=== PATIENT | female | born 1955 | race Caucasian/White ===

== ENCOUNTER 2024-05-21 04:24 | Inpatient (IN) | payer MEDICARE ==
[~2024-05-21] VITALS: Ht 167.6 cm; Wt 122.5 kg
[~2024-05-21 04:24] MED LIST: ELIQUIS5 MG PO
[2024-05-21] MEDS: ONDANSETRON HCL INJ 2MG/ML 2ML 2 MG/ML VIAL IV STA (05:02)
[2024-05-21] MEDS: SODIUM CHLORIDE 0.9% 1000ML 1,000 ML IV STA (05:02)
[2024-05-21] MEDS: Morphine 4mg INJECTION 4 MG/ML INJ IV STA (05:02)
[2024-05-21 05:05] LABS: BASOPHILS # (AUTO) 0.1 (0.0-0.1); BASOPHILS % 0.4 % (0.0-1.0); EOSINOPHILS # (AUTO) 0.2 (0.0-0.4); HEMATOCRIT 47.8 % (34.2-44.1); HEMOGLOBIN 15.3 g/dL (12.0-16.0); LYMPHOCYTES # (AUTO) 4.9 (1.0-3.2); LYMPHOCYTES % 29.2 % (18.0-39.1); MEAN CORPUSCULAR HEMOGLOBIN 29.8 pg (28-32); MEAN CORPUSCULAR VOLUME 93.2 fL (81-99); MONOCYTES # (AUTO) 1.1 (0.2-0.8); MONOCYTES % 6.7 % (4.4-11.3); NEUTROPHILS # (AUTO) 10.4 (2.1-6.9); NEUTROPHILS % 62.2 % (38.7-80.0); PLATELET COUNT 551 x10e3/uL (140-360); RED BLOOD COUNT 5.13 x10e6/uL (3.6-5.1); RED CELL DISTRIBUTION WIDTH 13.8 % (11.7-14.4); WHITE BLOOD COUNT 16.71 x10e3/uL (4.8-10.8)
[2024-05-21 05:12] LABS: CLARITY,URINE CLEAR (CLEAR); COLOR,URINE YELLOW (YELLOW)
[2024-05-21 05:13] LABS: BILIRUBIN,URINE NEGATIVE (NEGATIVE); GLUCOSE, URINE NEGATIVE (NEGATIVE); KETONES,URINE NEGATIVE (NEGATIVE); LEUKOCYTE ESTERASE ,URINE SMALL (NEGATIVE); NITRITE,URINE NEGATIVE (NEGATIVE); PH,URINE 5.5 (5 - 7); PROTEIN,URINE DIPSTICK NEGATIVE (NEGATIVE); URINE UROBILINOGEN 0.2 mg/dL (0.2 - 1)
[2024-05-21 05:20] LABS: BACTERIA,URINE MANY /HPF; WBC,URINE (MAN) 21-50 /HPF (0-5)
[2024-05-21 05:21] LABS: EPITHELIAL CELLS,URINE MODERATE /LPF; RENAL EPITHELIAL CELLS,URINE FEW
[2024-05-21 05:24] LABS: ALANINE AMINOTRANSFERASE 12 IU/L (0-55); ALBUMIN 3.7 g/dL (3.5-5.0); ALBUMIN/GLOBULIN RATIO 0.9 (0.8-2.0); ALKALINE PHOSPHATASE 88 IU/L (40-150); ANION GAP 15.4 mmol/L (8-16); BILIRUBIN,TOTAL 0.7 mg/dL (0.2-1.2); BLOOD UREA NITROGEN 12 mg/dL (7-26); BUN/CREATININE RATIO 16 (6-25); CALCIUM 9.5 mg/dL (8.4-10.2); CARBON DIOXIDE 25 mmol/L (22-29); CHLORIDE 97 mmol/L (98-107); CREATINE KINASE 36 IU/L (29-168); CREATININE, SERUM 0.77 mg/dL (0.57-1.11); EST GLOMERULAR FILTRATION RATE 84 ML/MIN (>=60); GLUCOSE 141 mg/dL (74-118); LIPASE 24 U/L (8-78); SODIUM 134 mmol/L (136-145); TOTAL PROTEIN 7.9 g/dL (6.5-8.1)
[2024-05-21 05:26] LABS: POTASSIUM 3.4 mmol/L (3.5-5.1)
[2024-05-21 05:30] LABS: TROPONIN I < 0.001 ng/mL (0-0.300)
[2024-05-21] MEDS ORDERED: IOPAMIDOL 370 MG/ML 100 ML INFUS..BTL INJ ONE (05:34)
[2024-05-21] MEDS ORDERED: Morphine 4mg INJECTION 4 MG/ML INJ IV PRN (07:30)
[2024-05-21] MEDS ORDERED: ONDANSETRON HCL INJ 2MG/ML 2ML 2 MG/ML VIAL IV PRN (07:30)
[2024-05-21] MEDS ORDERED: MAGNESIUM/ALUMINUM/SIMETHICONE 30 ML UDC PO PRN (12:30)
[2024-05-21] MEDS ORDERED: ACETAMINOPHEN 325 MG TAB PO PRN (12:30)
[2024-05-21] MEDS ORDERED: HYDRALAZINE HCL 20 MG/ML VIAL IV PRN (12:30)
[2024-05-21] MEDS ORDERED: GUAIFENESIN/DEXTROMETHORPHAN LIQD 5 ML UDC PO PRN (12:30)
[2024-05-21] MEDS ORDERED: DOCUSATE SODIUM 100 MG CAP PO PRN (12:30)
[2024-05-21 14:21] LABS: CREATINE KINASE 169 IU/L (29-168)
[2024-05-21 14:28] LABS: TROPONIN I < 0.001 ng/mL (0-0.300)
[2024-05-21] MEDS: SODIUM CHLORIDE 0.9% 1000ML 1,000 ML IV SCH (14:31)
[2024-05-21 14:36] VITALS: TEMP 98
[2024-05-21 15:29] LABS: INR 1.16; PROTHROMBIN TIME 15.4 seconds (11.9-14.5)
[2024-05-21 15:30] VITALS: PULSE 66; RESP 16
[2024-05-21 15:30] LABS: PARTIAL THROMBOPLASTIN TIME 32.1 seconds (23.8-35.5)
[2024-05-21] MEDS: HEPARIN SOD (PORCINE) 5,000 UNIT/ML VIAL SC SCH (15:41)
[2024-05-21 21:43] VITALS: BP 130/53; PULSE 70; RESP 18; TEMP 98; O2SAT 98
[2024-05-21] MEDS: MELATONIN 3 MG TAB PO PRN (22:10)
[2024-05-21 23:00] VITALS: BP 130/53; PULSE 70; RESP 18; TEMP 98; O2SAT 98
[2024-05-22] VITALS (8 sets, daily range): BP systolic 117–144; BP diastolic 50–68; PULSE 70–77; RESP 18–20; TEMP 97.7–98.7; O2SAT 96–100
[2024-05-22] MEDS ORDERED: OS-CAL 500+D T1 EACH PO (05:27)
[2024-05-22] MEDS ORDERED: LEVOTHYROXINE100 MC1 IV (05:29)
[2024-05-22] MEDS ORDERED: PROTONIX20 MG PO (05:31)
[2024-05-22] MEDS ORDERED: LOSARTAN POTAS100 MG PO (05:31)
[2024-05-22] MEDS ORDERED: MULTIA DAILY M1 EACH (05:31)
[2024-05-22] MEDS ORDERED: PANTOPRAZOLE SO40 MG PO (05:31)
[2024-05-22] MEDS ORDERED: SERTRALINE HCL150 MG (05:31)
[2024-05-22 06:10] LABS: BASOPHILS # (AUTO) 0.1 (0.0-0.1); BASOPHILS % 0.7 % (0.0-1.0); EOSINOPHILS # (AUTO) 0.6 (0.0-0.4); EOSINOPHILS % 4.9 % (0.0-6.0); HEMATOCRIT 41.4 % (34.2-44.1); LYMPHOCYTES # (AUTO) 5.2 (1.0-3.2); LYMPHOCYTES % 42.1 % (18.0-39.1); MEAN CORPUSCULAR HGB CONC 31.4 g/dL (31-35); MEAN CORPUSCULAR VOLUME 95.4 fL (81-99); MONOCYTES # (AUTO) 1.2 (0.2-0.8); MONOCYTES % 9.5 % (4.4-11.3); NEUTROPHILS # (AUTO) 5.2 (2.1-6.9); NEUTROPHILS % 42.4 % (38.7-80.0); PLATELET COUNT 496 x10e3/uL (140-360); RED BLOOD COUNT 4.34 x10e6/uL (3.6-5.1); WHITE BLOOD COUNT 12.35 x10e3/uL (4.8-10.8)
[2024-05-22 06:30] LABS: ALBUMIN/GLOBULIN RATIO 0.9 (0.8-2.0); ANION GAP 11.2 mmol/L (8-16); BILIRUBIN,TOTAL 0.6 mg/dL (0.2-1.2); CALCIUM 8.7 mg/dL (8.4-10.2); CREATININE, SERUM 0.68 mg/dL (0.57-1.11); TOTAL PROTEIN 6.4 g/dL (6.5-8.1)
[2024-05-22 06:40] LABS: POTASSIUM 3.2 mmol/L (3.5-5.1)
[2024-05-22] MEDS: DEXTROSE 5%/0.9% SOD CHL 1,000 ML IV SCH (13:28)
[2024-05-22] MEDS: POTASSIUM CHLORIDE 20 MEQ TAB CR PO ONE (13:28)
[2024-05-23] VITALS (7 sets, daily range): BP systolic 100–127; BP diastolic 53–69; PULSE 66–74; RESP 16–20; TEMP 97.7–98.8; O2SAT 95–99
[2024-05-23 07:41] LABS: BASOPHILS # (AUTO) 0.1 (0.0-0.1); BASOPHILS % 0.6 % (0.0-1.0); EOSINOPHILS # (AUTO) 0.5 (0.0-0.4); EOSINOPHILS % 5.1 % (0.0-6.0); HEMOGLOBIN 12.6 g/dL (12.0-16.0); LYMPHOCYTES % 49.1 % (18.0-39.1); MEAN CORPUSCULAR HEMOGLOBIN 29.4 pg (28-32); MEAN CORPUSCULAR HGB CONC 30.7 g/dL (31-35); MEAN CORPUSCULAR VOLUME 95.8 fL (81-99); MONOCYTES # (AUTO) 1.2 (0.2-0.8); MONOCYTES % 11.2 % (4.4-11.3); NEUTROPHILS # (AUTO) 3.5 (2.1-6.9); NEUTROPHILS % 33.7 % (38.7-80.0); PLATELET COUNT 454 x10e3/uL (140-360); RED BLOOD COUNT 4.28 x10e6/uL (3.6-5.1); RED CELL DISTRIBUTION WIDTH 14.2 % (11.7-14.4); WHITE BLOOD COUNT 10.23 x10e3/uL (4.8-10.8)
[2024-05-23 08:05] LABS: ANION GAP 9.2 mmol/L (8-16); CALCIUM 8.6 mg/dL (8.4-10.2); CREATININE, SERUM 0.59 mg/dL (0.57-1.11); POTASSIUM 3.2 mmol/L (3.5-5.1)
[2024-05-23 09:15] LABS: BASOPHILS % (MANUAL) 1 % (0-1.5); EOSINOPHILS % (MANUAL) 2 % (0-7); LYMPHOCYTES % (MANUAL) 40 % (19-48); MONOCYTES % (MANUAL) 6 % (3.4-9.0); NEUTROPHILS % (MANUAL) 48 % (40-74); REACTIVE LYMPHOCYTES 3
[2024-05-23 09:16] LABS: PLATELET ESTIMATE SLIGHTLY INCREASED; PLATELET MORPHOLOGY COMMENT NORMAL; RBC MORPHOLOGY COMMENT NORMAL
[2024-05-23] MEDS: POTASSIUM CHLORIDE 20 MEQ TAB CR PO ONE (15:50)
[2024-05-23] MEDS: APIXABAN 5 MG TABLET PO SCH (17:24)
[2024-05-24] VITALS: BP_SYST 115; BP_SYST 125; BP_DIAS 50; BP_DIAS 64; PULSE 75; PULSE 76; RESP 18; RESP 20; TEMP 98.6; O2SAT 96; O2SAT 99
[2024-05-24 04:00] VITALS: BP 128/69; PULSE 79; RESP 17; TEMP 98.2; O2SAT 95
[2024-05-24 05:46] LABS: BASOPHILS # (AUTO) 0.1 (0.0-0.1); BASOPHILS % 0.6 % (0.0-1.0); EOSINOPHILS # (AUTO) 0.7 (0.0-0.4); EOSINOPHILS % 5.7 % (0.0-6.0); HEMATOCRIT 41.4 % (34.2-44.1); HEMOGLOBIN 12.6 g/dL (12.0-16.0); LYMPHOCYTES # (AUTO) 5.6 (1.0-3.2); LYMPHOCYTES % 45.2 % (18.0-39.1); MEAN CORPUSCULAR HEMOGLOBIN 29.2 pg (28-32); MEAN CORPUSCULAR HGB CONC 30.4 g/dL (31-35); MEAN CORPUSCULAR VOLUME 96.1 fL (81-99); MONOCYTES # (AUTO) 1.5 (0.2-0.8); MONOCYTES % 12.2 % (4.4-11.3); NEUTROPHILS # (AUTO) 4.5 (2.1-6.9); NEUTROPHILS % 35.8 % (38.7-80.0); PLATELET COUNT 464 x10e3/uL (140-360); RED BLOOD COUNT 4.31 x10e6/uL (3.6-5.1); RED CELL DISTRIBUTION WIDTH 14.1 % (11.7-14.4); WHITE BLOOD COUNT 12.42 x10e3/uL (4.8-10.8)
[2024-05-24 06:25] LABS: ANION GAP 11.7 mmol/L (8-16); CALCIUM 8.7 mg/dL (8.4-10.2); CREATININE, SERUM 0.59 mg/dL (0.57-1.11); POTASSIUM 3.7 mmol/L (3.5-5.1)
[2024-05-24 08:36] VITALS: BP 132/46; PULSE 70; RESP 17; TEMP 97.6; O2SAT 96
[2024-05-24 08:45] VITALS: BP 132/46; PULSE 70; RESP 17; TEMP 97.6; O2SAT 96
[2024-05-24] MEDS ORDERED: AMOXICILLIN875 MG PO (10:11)
[2024-05-24 11:04] LABS: BASOPHILS % (MANUAL) 1 % (0-1.5); EOSINOPHILS % (MANUAL) 7 % (0-7); LYMPHOCYTES % (MANUAL) 48 % (19-48); MONOCYTES % (MANUAL) 8 % (3.4-9.0); NEUTROPHILS % (MANUAL) 36 % (40-74)
[2024-05-24 11:05] LABS: PLATELET ESTIMATE ADEQUATE; PLATELET MORPHOLOGY COMMENT NORMAL; RBC MORPHOLOGY COMMENT NORMAL
== END 2024-05-24 12:05 | disposition home or self-care (01) | DRG 394 ==
LOC: ER 04:30 → ERHOLD 07:28 → MED/SURG2 21:19
PROVIDERS: ADMIT Internal Medicine Critical Care Medicine; ATTEND Internal Medicine Critical Care Medicine
DX: K42.0 Umbilical hernia with obstruction, without gangrene (principal); N39.0 Urinary tract infection, site not specified; I10 Essential (primary) hypertension; E03.9 Hypothyroidism, unspecified; F41.9 Anxiety disorder, unspecified; K21.9 Gastro-esophageal reflux disease without esophagitis; E78.5 Hyperlipidemia, unspecified; M19.90 Unspecified osteoarthritis, unspecified site; Z79.01 Long term (current) use of anticoagulants; Z90.81 Acquired absence of spleen; Z86.718 Personal history of other venous thrombosis and embolism; Z86.711 Personal history of pulmonary embolism; Z90.710 Acquired absence of both cervix and uterus; Z91.048 Other nonmedicinal substance allergy status
CPT/HCPCS: 36415; 74177; 80048; 80053; 81001; 82550; 83690; 84484; 85025; 85610; 85730; 93005; 94760; 99284; J1644; J2270; J2405; J2543; J7030; J7042; Q9967